=== PATIENT | male | born 2000 | race African-American/Black ===

== ENCOUNTER 2022-07-04 14:42 | Emergency (ER) | payer OTHER ==
[2022-07-04 14:56] VITALS: BP 136/89; PULSE 85; RESP 20; TEMP 98.2; BMI 18.6
[2022-07-04] MEDS ORDERED: BACITRACIN 15 GM TUBE TOPICAL OINTMENT TP ONE (15:28)
[2022-07-04] MEDS ORDERED: BACITRACIN 15 GM TUBE TOPICAL OINTMENT ONE (15:37)
== END 2022-07-04 17:06 | disposition home or self-care (01) ==
LOC: JERFT 14:42
DX: S60.511A Abrasion of right hand, initial encounter (principal); S60.512A Abrasion of left hand, initial encounter; W22.8XXA Striking against or struck by other objects, initial encounter
CPT/HCPCS: 0241U-QW; 99283-25